=== PATIENT | female | born 1960 | race Two or more races ===

== ENCOUNTER 2020-07-05 18:21 | Emergency (ER) | payer OTHER ==
[~2020-07-05] VITALS: Ht 157.5 cm; Wt 56.0 kg
--- NOTE | 2020-07-05 19:53 | NUR ---
pt to room from lobby
--- NOTE | 2020-07-05 20:12 | NUR ---
PT RESTING ON GURNEY. APPEARS COMFORTABLE, NAD. FIRST PT CONTACT: PT STATES SHE HAS BEEN HAVING RIGHT SIDED FLANK PAIN SINCE 10 DAYS AGO. PT STATES IT WORSENED LAST SATURDAY AND THEN TODAY THE LEFT FLANK BEGAN TO HURT WELL. PT STATES THAT "PEEING IS PAINFUL, IT FEELS LIKE MY MUSCLES ARE BEING PULLED". ALSO STATES "MY RIGHT BIG TOE HURTS TOO." PT STATES SHE FELL TODAY DUE TO THE FLANK PAIN WHEN WALKING. PT HAS BEEN TAKING TYLENOL, LAST DOSE AT 0400. WCTM. PT PLACED ON SPO2/BP MONITORING. VSS.
[2020-07-05 20:40] LABS: BASOPHILS # (AUTO) 0.13 x10^3/uL (0-0.1); BASOPHILS % (AUTO) 1 % (0-1); EOSINOPHILS # (AUTO) 0.22 x10^3/uL (0-0.4); EOSINOPHILS % (AUTO) 2 % (1-7); LYMPHOCYTES # (AUTO) 2.71 x10^3/uL (1-3.4); LYMPHOCYTES % (AUTO) 30 % (22-44); MD NO; MEAN CORPUSCULAR HEMOGLOBIN 20.3 pg (27.0-34.8); MEAN CORPUSCULAR HGB CONC 31.2 g/dL (32.4-35.8); MEAN PLATELET VOLUME 9.1 fL (7.4-10.4); MONOCYTES # (AUTO) 0.49 x10^3/uL (0.2-0.8); MONOCYTES % (AUTO) 5 % (2-9); NEUTROPHILS # (AUTO) 5.58 x10^3/uL (1.8-6.8); NEUTROPHILS % (AUTO) 61 % (42-75); PLATELET COUNT 208 x10^3/uL (130-400); RED BLOOD COUNT 5.25 x10^6/uL (3.82-5.3); RED CELL DISTRIBUTION WIDTH 15.9 % (9.6-15.2)
[2020-07-05 20:48] LABS: ANION GAP 7 mmol/L (5-15); CALCIUM 8.5 mg/dL (8.5-10.1); CHLORIDE 110 mmol/L (98-107); CREATININE 1.04 mg/dL (0.55-1.02)
[2020-07-05 20:52] LABS: MICROSCOPIC AUTO
[2020-07-05] MEDS ORDERED: KETOROLAC 30 MG/1 ML IM ONE (21:30)
[2020-07-05] MEDS ORDERED: KETOROLAC 30 MG/1 ML ONE (21:36)
--- NOTE | 2020-07-05 21:39 | NUR ---
pt medicated per mar for pain, resting on gurney, vss, nad, denies additional needs at this time. states pain is 09/20, will recheck. waiting for additional test results. wctm.
[2020-07-05] MEDS ORDERED: DIAZEPAM 5 MG TABLET ONE (21:51)
[2020-07-05] MEDS ORDERED: DIAZEPAM 5 MG TABLET PO ONE (22:00)
[2020-07-05] MEDS ORDERED: LIDODERM 5% PATCH TD ONE ×2 (22:30→22:34)
[2020-07-05 22:38] VITALS: BP 103/52
--- NOTE | 2020-07-05 22:57 | NUR ---
Patient given discharge instructions and they have confirmed that they understand the instructions. Patient ambulatory with steady gait. NAD, DENIES ADDITIONAL QUESTIONS OR NEEDS AT THIS TIME. VSS. NO BELONGINGS LEFT IN ROOM AFTER DC.
== END 2020-07-05 22:58 | disposition home or self-care (01) ==
LOC: ED 22:30
DX: S39.012A Strain of muscle, fascia and tendon of lower back, initial encounter (principal); S29.012A Strain of muscle and tendon of back wall of thorax, initial encounter; N30.01 Acute cystitis with hematuria; M54.42 Lumbago with sciatica, left side; X58.XXXA Exposure to other specified factors, initial encounter; Y93.89 Activity, other specified; Y92.89 Other specified places as the place of occurrence of the external cause; Y99.8 Other external cause status
CPT/HCPCS: 36415; 74176; 80048; 81001; 85025; 87077; 87086; 96372; 99284; J1885; 87186

== ENCOUNTER 2021-04-26 21:53 | Emergency (ER) | payer SELFPAY ==
[~2021-04-26] VITALS: Ht 157.5 cm; Wt 60.5 kg
[2021-04-26 22:03] VITALS: BP 150/72
--- NOTE | 2021-04-26 22:54 | NUR ---
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 CALLED TO ROOM FROM [facility]. PT. COMING BACK PT. STATES "ACTUALLY, I AM FINE. I HAVE ALREADY BEEN WAITING 5 DAYS SO I CAN WAIT ONE MORE DAY TO BE SEEN." DISCUSSED WITH PT. THAT SHE WAS GOING TO BE SEEN BY MD AFTER GETTING HER ROOM AND SHE STATES "NO I AM GOOD, I AM GOING TO LEAVE". PT. WALKED OUT OF ED.
== END 2021-04-26 22:57 | disposition left against medical advice (07) ==
LOC: ED 22:30
DX: M54.6 Pain in thoracic spine (principal); M25.559 Pain in unspecified hip; Z53.21 Procedure and treatment not carried out due to patient leaving prior to being seen by health care provider